=== PATIENT | female | born 1990 | race Two or more races ===

== ENCOUNTER 2025-02-20 15:31 | Emergency (ER) | payer SELFPAY ==
[2025-02-20 15:32] VITALS: BMI 29.6
[2025-02-20 15:39] VITALS: BP 134/83; PULSE 97; RESP 17; TEMP 37.4; O2SAT 99
--- NOTE | 2025-02-20 15:41 | XR_ITS ---
Examination: CT abdomen and pelvis without contrast. Coronal 3-D reconstructions. Sagittal 2-D reconstructions. Date and time of exam:February 20, 2025 1804 hours INDICATIONS: Intermittent abdominal pain and hematuria beginning 3 days ago CTDI: vol (mGy): 13.6 DLP: (mGycm): 741 Technique: Axial images of the abdomen have been obtained, 3 mm slice thickness Intravenous contrast material has not been administered. Low dose protocols were performed. One or more of the following dose reduction techniques were used; automated exposure control, adjustment of the mA and/or KV according to patient size, use of iterative reconstruction technique. Findings: No focal liver or splenic lesion Hepatomegaly 20 cm, splenomegaly 15 cm No gallstones. No pancreatic or adrenal mass IVC filter satisfactory position No renal or ureteral calculi, no hydronephrosis Aorta normal size Normal appendix No bowel obstruction or diverticulitis Contracted urinary bladder no bladder mass or bladder calculi Absent uterus No pelvic mass Mild osteopenia IMPRESSION: Hepatosplenomegaly No renal or ureteral calculi, no hydronephrosis Normal appendix. No bladder mass or bladder calculi
--- NOTE | 2025-02-20 15:49 | PD.EDRME ---
Rapid Medical Screening Exam RME Arrival date/time: 02/20/25 15:31 34-year-old female with a history of stomach cancer presents to the emergency room with a chief complaint of nausea, vomiting, diarrhea, lower abdominal 10 out of 10 pain, and hematuria x 3 hours I have greeted and performed a focused initial assessment of this patient. A comprehensive ED assessment and evaluation of the patient, analysis of all test results, and completion of the medical decision making process will be conducted by additional ED providers. Chief Complaint: Nausea/Vomiting/Diarrhea Time Seen by Provider: 02/20/25 15:34 Vital signs: Vital Signs Temperature 99.3 F 02/20/25 15:39 Pulse Rate 97 02/20/25 15:39 Respiratory Rate 17 02/20/25 15:39 Blood Pressure 134/83 H 02/20/25 15:39 Pulse Oximetry (%) 99 02/20/25 15:39 Oxygen Delivery Method Room Air 02/20/25 15:39 Vital signs reviewed by provider: Yes
[2025-02-20 16:15] LABS: Basophils # (Auto) 0.0 Thou/mm3 (0.0-0.2); Basophils % (Auto) 0 % (0-2.5); Eosinophils # (Auto) 0.1 Thou/mm3 (0.0-0.5); Eosinophils % (Auto) 1 % (0-10); Hematocrit 32.3 % (36.0-46.0); Hemoglobin 10.2 g/dL (12.0-16.0); Immature Granulocytes Auto 0.03 Thou/mm3 (0.00-0.00); Lymphocytes # (Auto) 1.3 Thou/mm3 (1.0-4.8); Lymphocytes % (Auto) 17 % (10-50); Mean Corpuscular HGB Conc 31.6 g/dl (31.0-37.0); Mean Corpuscular Hemoglobin 23.4 pg (25.0-35.0); Mean Corpuscular Volume 74 fL (80-100); Monocytes # (Auto) 0.6 Thou/mm3 (0.0-0.8); Monocytes % (Auto) 8 % (0-12); Neutrophils # (Auto) 5.5 Thou/mm3 (1.8-7.7); Neutrophils % (Auto) 74 % (37-80); Nucleated Red Blood Cell # 0.00 Thou/mm3 (0.00-0.00); Nucleated Red Blood Cell % 0 /100 WBC (0); Platelet Count 230 Thou/mm3 (140-440); RDW Standard Deviation 50.3 fL (36.4-46.3); Red Blood Count 4.35 Miln/mm3 (4.00-5.20); White Blood Count 7.5 Thou/mm3 (3.6-11.0)
[2025-02-20 16:42] LABS: Alanine Aminotransferase 88 U/L (10-49); Albumin, Serum 4.3 gm/dL (3.5-5.0); Albumin/Globulin Ratio 1.4 (1.2-2.2); Alkaline Phosphatase 143 U/L (46-116); Anion Gap 10 (7-16); Aspartate Amino Transferase 132 U/L (0-34); BUN/Creatinine Ratio 11 Ratio (12-20); Bilirubin,Total 0.3 mg/dL (0.3-1.2); Blood Urea Nitrogen 10 mg/dL (9-23); Calcium 9.7 mg/dL (8.3-10.6); Calcium (Corrected) 9.7 mg/dL (8.5-10.1); Carbon Dioxide 22.1 mMol/L (20.0-31.0); Chloride 107 mMol/L (98-107); Creatinine (Component) 0.9 mg/dL (0.6-1.3); Estimated Creatinine Clearance 97.2 mL/min (>60); Globulin 3.1 gm/dL (2.3-3.5); Glucose 120 mg/dL (74-106); Lipase 38 U/L (12-53); Osmolality,Calculated 277 (275-295); Potassium 3.7 mMol/L (3.4-5.1); Sodium 139 mMol/L (136-145); Total Protein 7.4 gm/dL (5.7-8.2); eGFR > 60 See Note
--- NOTE | 2025-02-20 17:28 | PC.NURSE ---
DR RUSSO AT BEDSIDE TO SEE PT
--- NOTE | 2025-02-20 17:34 | EDNOTE_ITS ---
ED Abdominal Pain RME/HPI General Chief Complaint: Nausea/Vomiting/Diarrhea Stated complaint: URINATING BLOOD, VOMITING, ABD PAIN, WEAK Time seen by provider: 02/20/25 15:34 Arrival date/time: 02/20/25 15:31 RME / HPI RME / HPI narrative: 02/20/25 15:31 34-year-old female with a history of stomach cancer presents to the emergency room with a chief complaint of nausea, vomiting, diarrhea, lower abdominal 10 out of 10 pain, and hematuria x 3 hours I have greeted and performed a focused initial assessment of this patient. A comprehensive ED assessment and evaluation of the patient, analysis of all test results, and completion of the medical decision making process will be conducted by additional ED providers. DR. ORTIZ MAIN ED EVALUATION 34 year old female with history of breast cancer with mets to stomach, s/p right mastectomy, currently undergoing Doxorubicin treatments once a week (last received Friday02/16/2025) presents to the ED for evaluation of diffuse abdominal pain beginning this morning. Described as aching in sensation, rating as severe. Accompanied by nausea and vomiting. Reportedly has taken Zofran with Benadryl (due to an allergy to Zofran) and has had no improvement, last dose taken at 13:00h. Denies fevers, chills, sweats. Denies chest pain, cough, shortness of breath. Denies diarrhea, constipation. Oncologist Dr. Mandel in [place], [place]. Related Data Allergies Allergy/AdvReac Type Severity Reaction Status Date / Time ketorolac (From Toradol) Allergy Severe Hives Verified 02/20/25 15:36 metoclopramide (From Reglan) Allergy Severe Hives Verified 02/20/25 15:36 tramadol Allergy Severe Hives Verified 02/20/25 15:36 Review of Systems Review of Systems Systems Reviewed: All systems reviewed, normal except as documented Past Medical History Past Medical History REPRODUCTIVE: Positive Breast Cancer (BREAST CANCER METASTASIS TO THE ABD PER PT) OTHER HISTORY: Positive Breast Cancer (BREAST CANCER METASTASIS TO THE ABD PER PT) Social History SMOKING STATUS: Never smoker ED Exam Narrative Physical exam: GENERAL APPEARANCE: alert and oriented x 4, well-developed, well-nourished HEENT: Normocephalic, atraumatic; EOMI; mucous membranes pink, moist; oropharynx clear NECK: Supple LUNGS: CTABL; no wheezes, no rales, no rhonchi HEART: Regular rate, regular rhythm; normal S1, S2; no murmurs ABDOMEN: non distended; normal BS; soft, diffuse mild tenderness, no guarding, no rebound; no masses, no organomegaly, no hernia BACK: no CVA tenderness EXTREMITIES: atraumatic; no edema NEUROLOGIC: awake; alert and oriented x4; cranial nerves II-XII grossly intact; no focal sensory or motor deficits PSYCHIATRIC: appropriate mood and affect SKIN: warm, dry, normal color; no rashes Course Course Course Narrative: 1800: Patient signed out to Dr. Zraco pending CT, labs, and final disposition. Quality Measures none Orders Category Date Time Status Saline [Insert IV] NOW Care 02/20/25 18:[address] abdomen pelvis wo con Stat Exams 02/20/25 15:41 Completed CBC Stat Lab 02/20/25 16:03 Completed CMP [Comprehensive Metabolic Panel] Stat Lab 02/20/25 16:03 Completed Drug Screen,Urine Stat Lab 02/20/25 17:58 Completed HCG Qualitative,Urine Stat Lab 02/20/25 17:58 Completed Lipase Stat Lab 02/20/25 16:03 Completed Magnesium Stat Lab 02/20/25 16:03 Completed UA [Urinalysis] Stat Lab 02/20/25 17:58 Completed DiphenhydrAMINE INJ [Benadryl Inj] Med 02/20/25 17:32 Discontinued 25 mg IVP X1 ONE HYDROmorphone INJ [Dilaudid Inj] Med 02/20/25 18:54 Discontinued 1 mg IVP X1 ONE Morphine Inj Med 02/20/25 17:32 Discontinued 5 mg IVP X1 ONE Ondansetron Inj [Zofran Inj] Med 02/20/25 17:32 Discontinued 4 mg IVP X1 ONE Sodium Chloride 0.9% 1000 ml [Ns] 1,000 ml Med 02/20/25 18:29 Discontinued IV 999 mls/hr Vital Signs Vital signs: Vital Signs Temperature 99.3 F 02/20/25 15:39 Pulse Rate 97 02/20/25 15:39 Respiratory Rate 17 02/20/25 15:39 Blood Pressure 134/83 H 02/20/25 15:39 Pulse Oximetry (%) 99 02/20/25 15:39 Oxygen Delivery Method Room Air 02/20/25 15:39 Pulse ox is 99% on room air which is adequate. Abdominal Pain MDM MDM Narrative MDM Narrative:: Sana Ruelas am scribing for and in the presence of Dr. Ortiz. Patient data External records reviewed:: None Clinical information provided by:: patient Social determinants that could affect healthcare access:: none Patient has the following chronic illnesses:: breast cancer with mets to stomach, s/p right mastectomy, currently undergoing Doxorubicin treatments once a week (last received Friday02/16/2025) How is presenting disease/condition affected by chronic disease/condition?: exacerbated by Evaluation data The following diagnostics were reviewed and interpreted by me:: lab results Lab and/or radiology exams considered but not ordered:: None Interpretation Summary: CBC shows mild anemia and no previous lab results for review Medications / Prescriptions Medications or Prescriptions considered but not ordered:: None Medication administrations:: Medication Administration History Discontinued Medications Diphenhydramine HCl (Diphenhydramine Inj 50 Mg/Ml Vial) 25 mg IVP X1 ONE Stop: 02/20/25 17:33 Last Admin: 02/20/25 17:49 Dose: 25 mg Documented By: DO Hydromorphone HCl (Hydromorphone Inj 2 Mg/Ml Vial) 1 mg IVP X1 ONE Stop: 02/20/25 18:55 Last Admin: 02/20/25 19:00 Dose: 1 mg Documented By: DO Sodium Chloride (Ns) 1,000 mls @ 999 mls/hr IV .Q1H1M ONE Stop: 02/20/25 19:29 Last Infusion: 02/20/25 19:05 Dose: Infused Documented By: Admin: 02/20/25 19:00 Dose: 999 mls/hr Documented By: DO Morphine Sulfate (Morphine Sulf Inj 10 Mg/Ml Vial) 5 mg IVP X1 ONE Stop: 02/20/25 17:33 Last Admin: 02/20/25 17:48 Dose: 5 mg Documented By: DO Ondansetron HCl (Ondansetron Inj 2 Mg/Ml Inj 2 Ml) 4 mg IVP X1 ONE Stop: 02/20/25 17:33 Last Admin: 02/20/25 17:48 Dose: 4 mg Documented By: DO See above Consultations Consultation(s) initiated? (list below): No Diagnosis Differential diagnosis abdominal pain: abdominal pain, calculus of kidney, diverticulitis and gastroenteritis Most likely diagnosis given after review of the tests above:: Abdominal pain Admission Indicated Admission indicated?: not indicated Explain why admission is indicated or not indicated:: signed out to Dr. Zarco pending final disposition Admission Request Was there a request for admission?: No Disposition Plan Disposition Plan: other (specify) (signed out to Dr. Zarco at 18:00h ) Discharge Plan Plan Patient Disposition: Left Against Medical Advice Prescriptions/Referrals Referrals: No Primary/Family,Physician [Primary Care Provider] - In 1 week Problem List Clinical Impression: Abdominal pain Patient/Caregiver Discharge Instructions Print Language: [place]
[2025-02-20] MEDS: MORPHINE SULF INJ 10 MG/ML VIAL 5 MG IVP (17:48)
[2025-02-20] MEDS: ONDANSETRON INJ 2 MG/ML INJ 2 ML 4 MG IVP (17:48)
[2025-02-20 18:02] LABS: Collection Type, Urine Clean Catch
[2025-02-20 18:14] VITALS: BP 112/65; PULSE 94; RESP 16; TEMP 37.3; O2SAT 98
[2025-02-20 18:14] LABS: Amphetamine/Methamp Scrn,U Negative (Negative); Barbiturate Screen,Urine Negative (Negative); Benzodiazepines Screen,Urine Negative (Negative); Benzoylecgonine Screen, Ur Negative (Negative); Fentanyl Screen,Urine Negative (Negative); Opiate Screen,Urine Negative (Negative); THC Screen,Urine Negative (Negative)
[2025-02-20 18:15] LABS: Bilirubin,Urine Negative (Negative); Blood,Urine 3+ (Negative); Clarity,Urine Turbid (Clear/Hazy); Color,Urine Dark-Brown (Lt Yel-Yel); Glucose, Urine Negative (Negative); Ketones,Urine Negative (Negative); Leukocyte Esterase,Urine Positive (Negative); Nitrite,Urine Negative (Negative); PH,Urine 6.0 (5.0-7.0); Protein,Urine 2+ (Neg - Trace); RBC,Urine 7 /hpf (0-3); Specific Gravity,Urine 1.019 (1.001-1.035); Squamous Epithelial Cell,Urine 8 /hpf (0-5); Urobilinogen,Urine Negative mg/dL (0.0-1.0); WBC,Urine 8 /hpf (0-5)
[2025-02-20 18:19] LABS: HCG Qualitative,Urine Negative
--- NOTE | 2025-02-20 18:27 | PD.EDADDENDU ---
Emergency Room Addendum <Collette Mcdaniel - Last Filed: 02/20/25 19:23> Addendum Narrative: I took over the care from previous shift physician, Dr. Ortiz, at 6 PM on 02/20/25. See previous notes for complete H & P and ED course. I reviewed all diagnostic test results. Diagnoses include: Treatment here included Dilaudid and IV fluid. Patient signed out against medical advice, Tony Zarco MD <Tony Zarco MD - Last Filed: 02/20/25 19:43> Addendum Narrative: I took over the care from previous shift physician, Dr. Ortiz, at 6 PM on 02/20/25. See previous notes for complete H & P and ED course. When I looked for the patient to start my review and evaluation, I was told the patient left AMA. Tony Zarco MD
[2025-02-20] MEDS: SODIUM CHLORIDE 0.9% 1000 ML 1,000 ML 999 ML IV (19:00)
[2025-02-20] MEDS: HYDROmorphone INJ 2 MG/ML VIAL 1 MG IVP (19:00)
[2025-02-20 19:24] LABS: Magnesium 1.7 mg/dL (1.6-2.6)
--- NOTE | 2025-02-20 19:25 | PC.NURSE ---
pt alert and oriented signing out against medical advice. pt reports she has a family emergency with her son and needs to leave. pt informed of consequences of leaving including up to . pt informed to return for any worsening of symptoms. pt verbalized understanding.
--- NOTE | 2025-02-20 19:25 | PC.NURSE ---
dr. looney made aware pt signing out ama.
== END 2025-02-20 19:25 | disposition left against medical advice (07) ==
PROVIDERS: Nurse Practitioner Family; Emergency Provider Emergency Medicine
DX: R10.9 Unspecified abdominal pain (principal); R11.2 Nausea with vomiting, unspecified; D63.0 Anemia in neoplastic disease; C50.911 Malignant neoplasm of unspecified site of right female breast; C78.89 Secondary malignant neoplasm of other digestive organs; Z90.11 Acquired absence of right breast and nipple; Z53.29 Procedure and treatment not carried out because of patient's decision for other reasons; Z88.5 Allergy status to narcotic agent; Z88.8 Allergy status to other drugs, medicaments and biological substances
CPT/HCPCS: 36415; 74176; 80053; 80307; 81001; 81025; 83690; 83735; 85025; 87086; 96374; 96375; 99283; J1171; J1200; J2270; J2405; J7030